=== PATIENT | male | born 2000 | race Hispanic/Latino ===

== ENCOUNTER 2020-09-15 07:35 | Inpatient (IN) | payer OTHER ==
[~2020-09-15] VITALS: Ht 175.3 cm; Wt 87.5 kg
--- OUTSIDE RECORDS SUMMARY | 2020-09-15 09:50 | XMS ---
PreManage Notification: CHALO BARROS Security Dietary Aid Events No recent Security Events currently on file CRITERIA MET - [facility] - 2 Visits in 30 Days CARE PROVIDERS There are no care providers on record at this time. Darin has no Care Guidelines for this patient. Dominga VISIT COUNT (12 MO.) [address] Anthony Joey TOTAL 2 NOTE: Visits indicate total known visits. ED/UCC VISIT TRACKING (12 MO.) [facility] COMPLAINT: - ABD PAIN 09/14/2020 23:43 [facility] [place] TYPE: Emergency DIAGNOSES: - Epididymitis - TESTICLE PAIN INPATIENT VISIT TRACKING (12 MO.) No inpatient visits to display in this time frame [email or web address]
--- NOTE | 2020-09-15 10:05 | NUR ---
Called ED and got report on pt from Amalia ALMARAZ. Pt has minimal ariadna hx, and is being admitted for appendicitis. Anticipating appy later today. Pt being moved to room 124. Pain is currently controlled.
--- NOTE | 2020-09-15 11:06 | NUR ---
ASSUMING CARE OF PATIENT. PATIENT APPEARS TO BE RESTING BACK IN BED WITH EYES CLOSED. MOTHER IS AT BEDSIDE. NO NEEDS AT THIS TIME.
--- NOTE | 2020-09-15 11:59 | NUR ---
PATIENT RESTING BACK IN BED, IV ANTIBIOTICS DONE INFUSING. IV FLUIDS FLOWING WELL. PATIENT REPORTS PAIN 2/10 ON PAIN SCALE AND VERBALIZES "MUCH BETTER". VSS. CALL LIGHT WITHIN REACH. NO OTHER NEEDS AT THIS TIME. MOTHER AT BEDSIDE. BALAJI AMARAL TO ROOM.
--- NOTE | 2020-09-15 13:30 | NUR ---
09/15/20 1330 Sheets,Basilia 1320 PT ARRIVED TO PACU ON 6L VIA MASK, VSS. PT MOVES HEAD BUT DOES NOT RESPOND TO QUESTIONS. RESP EVEN AND UNLABROED. 1327 O2 REMOVED AND PT OPENED HIS EYES, PT REORIENTED TO PACU AND DENIES PAIN. PT EASILY FALLS BACK TO SLEEP.
--- NOTE | 2020-09-15 14:00 | NUR ---
Pt arrived to the floor from PACU with Basilia ALMARAZ. Report was that pts procedure went well and his pain is only just becoming an issue. Pt is awake but groggy and oriented x4, reports no nausea with 6/10 pain. Initial VSS. Lap sites x3 appear intact, no active bleeding. Pt assessment complete, pt is remarkably healthy, focus of assessment is his incision sites. Pt in bed, side rails up, table and call light within reach.
--- NOTE | 2020-09-15 14:30 | NUR ---
Pt reports 8/10 increasing pain. PRN pain med given per orders. Pt reports no nausea at this time. Dinner ordered. Table and call light within reach, mother at bedside.
--- NOTE | 2020-09-15 15:24 | NUR ---
PT VOIDED YELLOW IN COLOR URINE INTO A URINAL, SOME ICE WATER GIVEN TO PT ALSO AT THIS TIME.
--- NOTE | 2020-09-15 16:10 | NUR ---
In room for vitals and rounding. Pt reports minimal pain and no nausea at this time. Pt has been able to tolerate sips of water and a jello without difficulty at this time. Pt ABX hung as ordered. Pt in bed, table and call light within reach. Pt also confirmed that we could call his girlfriend Mary to give her an update on how he's doing. Mary was called and given a general update. She asked about DC time and was told we do not currently know when DC will be.
--- NOTE | 2020-09-15 18:00 | NUR ---
In room for rounding. Pt had finished his meal for dinner and was still hungry, so he ordered more food. Pt reports mild pain but refuses pain meds, says he wantsto "wait a while". Pt in bed, table and call light within reach, mother at bedside.
--- NOTE | 2020-09-15 18:23 | NUR ---
MOTHER OF PATIENT CALLED FOR HELP, PATIENTS CALLBELL WAS NOT WORKING. PATIENT WANTED ASSTISTANCE WALKING TO BR. TOLERATED WELL. BACK TO BED, CHANGED GOWN. SUNG KU ENSURE CALL HAIDER IS NOW WORKING.
--- NOTE | 2020-09-15 19:43 | NUR ---
Shift report recieved by RN. [address] with gauze on abdominal reinforced by day shift. Pt states feeling dizzy when looking at sites. Mother is in the room and will be staying. No further needs or concerns at this time. Call light within reach.
--- NOTE | 2020-09-15 20:30 | NUR ---
pt called, needing to void, c/o lightheadedness and surgical site bleeding, informed main rn, had pt remain on edge of bed, void with urinal, took vitals, normal reading, rn to be in rm for pm assessment and meds soon
--- NOTE | 2020-09-15 21:30 | NUR ---
Pt resting in bed, assessment completed. Scheduled meds given. Pt refused pain medications, states that he is not having pain. Lap sites x3 intact with steri strips and gauze. Pt reports dizziness at times but VS remain stable. Education given on safety and use of call light. Pt verbalize understanding. No unlabored breathing. No further concerns or needs.
--- NOTE | 2020-09-15 22:15 | NUR ---
PT CALLED, GOT UP TO THE BR, SBA/1PA, PT HAS STOMACH PAIN FROM SURGERY SITE, REPORTS SOME DIZZYNESS AT TIMES, TOLERATES WALKING WITH SLOW PACE AND HAS TREMBLING, PT IS ABLE TO STAND AT TOILET, USES URINAL, PT AT EDGE OF BED, REQUESTING TO SIT THERE FOR A MINUTE, PTs GIRLFRIEND IN RM, PT AGREES TO CALL ONCE READY TO LAY BK IN BED, LEFT PT TO SIT AND HELP ANOTHER PT
--- NOTE | 2020-09-15 22:32 | NUR ---
CALL LIGHT ON. pt REQUESTED ASSISTANCE TO LAY DOWN. SCDS ON. ASSISTED TO REPOSITION. NO FURTHER REQUESTS AT THIS TIME. CALL LIGHT WITHIN REACH. VISITOR AT BEDSIDE.
--- NOTE | 2020-09-16 01:19 | NUR ---
Pt lying in bed, reports tolerable pain 3/10 on abdomen. VS stable, HVAC RESIDENTIAL SERVICE TECHNICIAN assisted pt to the restroom and back to bed, SBA. Girlfriend in room. call light within reach.
--- NOTE | 2020-09-16 03:41 | NUR ---
IV PUMP BEEPING. pt REQUESTED TO GET UP TO VOID, VERY SHAKY. pt STATED "THE PAIN GETS BAD WHEN I AM UP AND WALKING, I ALSO GET REALLY SHAKY. I THINK MY BLOOD SUGAR IS LOW." CHECKED BLOOD SUGAR 114. PROVIDED A SNACK. AFTER RESTING IN BED FOR A FEW MINUTES THE pt STOPPED SHAKING. IVF, AND ANTIBIOTIC HUNG. PRN PAIN MED GIVEN FOR 8/10 PAIN. PRIMARY RN IN ROOM.
--- NOTE | 2020-09-16 03:43 | NUR ---
ASSESSMENT COMPLETE, PT RECENTLY MEDICATED BY SUNG CHARLTON FOR INCREASED 8/10 ABD PAIN. SCHEDULED ABX ALSO GIVEN. LAP SITES X3 REMAIN UNCHANGED, BT ACTIVE. NO NAUSEA REPORTED, SNACK AT BEDSIDE. IV FLUIDS INFUSING, SITE WNL. GIRLFRIEND REMAINS IN ROOM. PT DENIES ADDITIONAL NEEDS, CALL LIGHT IN REACH.
--- NOTE | 2020-09-16 04:00 | NUR ---
took pillow to for pt's girlfriend, reconnected scds, provide pt more apple suace, joce further request at this time
--- NOTE | 2020-09-16 06:22 | NUR ---
VSS, PT DENIES PAIN. SCHEDULED TYLENOL GIVEN (SEE EMAR). I&O'S COMPLETE, NO NEW CONCERNS. CALL LIGHT IN REACH.
--- NOTE | 2020-09-16 07:15 | NUR ---
To room for shift report from Chantale ALMARAZ. Pt report included: was able to void sufficiently throughout the paper winder, but has not had a BM yet. Pt able to walk with SBA to bathroom as needed. Uses call light appropriately. Lep sites have not been over-saturated or concerning. Pt having some issues wild mild dizziness periodically. Nightshift RNs said his BPs have been within range. Will continue to monitor and assess. Pt lying in bed, eyes closed, breathing even and unlabored.
--- NOTE | 2020-09-16 08:30 | PATH ---
[facility] [address] [place], [place] [address] Signed ORDERING PHYSICIAN: Daniel Berg MD PATIENT NAME: CHALO BARROS GENDER: M : 2000 Prior History: No cases found. SPECIMEN(S): MOLECULAR PATHOLOGY RESULTS: SARS-CoV-2 Not Detected ADDITIONAL NOTES.: The Jessie Fusion SARS-CoV-2 Assay is a multiplex real-time PCR (RT-PCR) in vitro diagnostic test intended for the qualitative detection of RNA from SARS-CoV-2 from individuals who meet COVID-19 clinical and/or epidemiological criteria. In general, SARS-CoV-2 RNA can be detected during the acute phase of infection. Positive results indicate the presence of SARS-CoV-2 RNA. Clinical correlation with patient history and other diagnostic information is necessary to determine patient infection status. Positive results do not rule out bacterial infection or co-infection with other viruses. Negative results do not preclude SARS-CoV-2 infection and should not be used as the sole basis for patient management decisions. Negative results must be combined with other clinical observations, patient history, and epidemiological information. The Jessie Fusion SARS-CoV-2 Assay is not yet approved or cleared by the [place] FDA. When there are no FDA-approved or cleared tests available, and other criteria are met, FDA can make tests available under an emergency access mechanism called an Emergency Use Authorization (EUA). The EUA for this test is supported by the [place] Manager of Health and Human Service's (HHS's) declaration that circumstances exist to justify the emergency use of in vitro diagnostics for the detection and/or diagnosis of the virus that causes COVID-19. This EUA will remain in effect for the duration of the COVID-19 declaration justifying emergency of IVDs, unless it is terminated or revoked by FDA, after which the test may no longer be used. The Jessie Fusion SARS-CoV-2 Assay is for use only under EUA PATIENT NAME: CHALO BARROS JUAN PATHOLOGY DATE OF : [birth year] REPORT #: [id number] PHYSICIAN: ABEL PATHOLOGY PCP: NO PRIMARY CARE PHYSICIAN REPORT IS CONFIDENTIAL AND NOT TO BE RELEASED WITHOUT AUTHORIZATION [facility] [address] [place] [address] [place], [place] [address] Signed in [place] laboratories certified under the Clinical Laboratory Improvement Amendments of 1988 (CLIA) to perform high complexity tests. [facility] is certified under CLIA to perform high complexity clinical laboratory testing. PERFORMING LABORATORY.: Molecular testing was performed by [facility] [address] [place], [place] [address], [place] [address] (Nanny/Household Manager: Ketan Degroot D.O.; CLIA#: [id number]) Diagnostician: System Interface Pathologist Electronically Signed 09/16/2020 Copies: ~ PATIENT NAME: CHALO BARROS JUAN PATHOLOGY DATE OF : [birth year] REPORT #: [id number] PHYSICIAN: ABEL BERRY PCP: NO PRIMARY CARE PHYSICIAN REPORT IS CONFIDENTIAL AND NOT TO BE RELEASED WITHOUT AUTHORIZATION
--- NOTE | 2020-09-16 08:32 | NUR ---
In room for morning assessment and med pass. Pt able to receive meds without difficulty. Pt getting LR at 85mls/hr as ordered. Pt assessment complete, nothing concerning noted, VSS, see charting. Pt up to bathroom with SBA, moving independently with a steady gait. Pt performed own oral care. Pt ordered breakfast, and has had no nausea throughout the night. Pt reports 5/10 tolerable pain and refuses pain meds. Pt denies dizziness upon standing and ambulation. Pt back to bed, table and call light within reach, girlfriend in the room.
--- NOTE | 2020-09-16 10:05 | NUR ---
In room for med pass. Pt getting back into bed with WORKING FOREMAN at A. Pt reports no nausea and pain of 6/10 when resting after ambulation. Pt was shaking slightly while walking and when asked, he reports that he shakes when he gets up "cause the pain is sharp". Pt refuses pain meds right now, but agrees to have PRN Toradol within the next availible time. Pt denies dizziness. Pt back to bed, table and call light within reach. ABX infusing as ordered.
--- NOTE | 2020-09-16 11:28 | NUR ---
In room for rounding. Pt reports tolerable 5/10 pain an no nausea or dizzines at this time. Pt lying in bed, side rails up, table and call light within reach.
--- NOTE | 2020-09-16 12:29 | NUR ---
Pt disconnected from fluids, and was able to ambulate 3 full laps around both nurses stations. Pt back to bed, SCDs appliead and on, side rails up, table and call light within reach.
[2020-09-16] MEDS ORDERED: ACETAMINOPHEN500 MG PO (13:25)
[2020-09-16] MEDS ORDERED: OXYCODON-ACETA1 EAC2 PO (13:25)
[2020-09-16] MEDS ORDERED: MOTRIN IB200 M1 PO (13:26)
--- NOTE | 2020-09-16 14:03 | NUR ---
PATIENT SITTING UP IN BED. GIRLFRIEND IN ROOM. VITAL SIGNS AND I&O DONE. CALL LIGHT WITHIN REACH. NO OTHER NEEDS AT THIS TIME
--- NOTE | 2020-09-16 14:30 | NUR ---
DC TO HOME ACCOMPANIED BY MOTHER AT THIS TIME.
--- NOTE | 2020-09-18 15:17 | OR ---
[facility] [address] [place], [place] [address] Signed DATE OF OPERATION: 09/15/2020 SURGEON: Hany Perdomo MD PREOPERATIVE DIAGNOSIS: Acute appendicitis. POSTOPERATIVE DIAGNOSIS: Acute suppurative appendicitis. PROCEDURE: Laparoscopic appendectomy. ANESTHESIA: General endotracheal; Geovani Leon CRNA. PROJECT MANAGER FINANCE: Nurse (Jerry Ann RN). INDICATIONS: This 19-year-old man presents to the emergency room today, was evaluated by Dr. Turner with severe right lower abdominal pain and white count of 21,000. He is found on clinical examination to have tenderness. A CT scan was performed, confirming acute appendicitis. Notably, the patient was seen yesterday in the [place] ER, where he was diagnosed with epididymitis, although he did not have a scrotal pain or tenderness. His white count was normal at that time as well. He has been fluid resuscitated given intravenous antibiotics, and is now to undergo appendectomy, preferred by laparoscopic approach. The risks of bleeding, infection, need for open procedure, and other unforeseen complications were reviewed in detail. He understands and wished to proceed. FINDINGS: Acute suppurative appendicitis was noted. Appendix was excised without problem. The gallbladder may have had mild chronic inflammation, but no sign of distention or anything to suggest acute cholecystitis. Liver was normal. There were no other findings of concern. DESCRIPTION OF PROCEDURE: The patient was brought to the operating room, given a general endotracheal anesthetic. Electronically Signed By: HANY PERDOMO MD 09/18/20 1517 PATIENT NAME: CHALO BARROS OPERATIVE REPORT DATE OF : [birth year] REPORT #: [id number] PHYSICIAN: HANY PERDOMO MD PCP: NO PRIMARY CARE PHYSICIAN REPORT IS CONFIDENTIAL AND NOT TO BE RELEASED WITHOUT AUTHORIZATION [facility] [address] [place], [place] [address] Signed Preoperative antibiotic, cefoxitin had been given. Sequential compression device stockings used. Heparin subcutaneously administered. The abdomen was prepared with a chlorhexidine solution and draped sterilely. An infraumbilical incision was made and using an open Luis Enrique cannula technique, pneumoperitoneum was achieved to a level of 14 mmHg of carbon dioxide gas. Notably, there was a circumareolar incision in the infraumbilical fold as well. Intraabdominal inspection showed no sign of ascites or carcinomatosis. An epigastric incision was made anticipating placement of a trocar there. However, it was placed too far to the left to be acceptable, therefore another vertical incision was made more to the right of the linea alba allowing for passage of a 12 mm epigastric port without impediment by the round ligament. Camera was replaced to that site. Single hand manipulation of the right lower abdomen revealed the underlying appendix, which was quite markedly inflamed and edematous peel. The right lower quadrant 5 mm port was placed with two hand manipulation, the appendix elevated and a window created between the appendix and the mesoappendix with electrocautery. Endo-DENG stapling device was used to transect the appendix flushed with the cecum. Elevation of the appendix allowed for good visualization of the mesoappendix. A single load of an Endo-DENG staple load across the mesoappendix to allow for complete transection and good hemostasis. The appendix was placed in an endobag and extracted through the infraumbilical port site without problem and opened on the back table. Irrigation was undertaken in the right lower quadrant. There was no sign of bleeding or other abnormality. Staple lines were hemostatic. The trocars removed under direct visualization without problem. The infraumbilical fascial incision reapproximated with interrupted 0-Vicryl suture. The skin was closed with interrupted 3-0 Vicryl. Steri-Strips were applied. The patient was ultimately extubated and transferred to the recovery room in good condition, having suffered no complication. ESTIMATED BLOOD LOSS: Minimal. COMPLICATIONS: None. MD MAGALYS Bee/MODL /[id number] Electronically Signed By: HANY PERDOMO MD 09/18/20 1517 PATIENT NAME: CHALO BARROS OPERATIVE REPORT DATE OF : [birth year] REPORT #: [id number] PHYSICIAN: HANY PERDOMO MD PCP: NO PRIMARY CARE PHYSICIAN REPORT IS CONFIDENTIAL AND NOT TO BE RELEASED WITHOUT AUTHORIZATION [facility] [address] [place] [address] [place] [address] Signed cc: Shekhar Turner MD Copies: SHEKHAR TURNER MD ~ Electronically Signed By: HANY PERDOMO MD 09/18/20 1517 PATIENT NAME: CHALO BARROS OPERATIVE REPORT DATE OF : [birth year] REPORT #: [id number] PHYSICIAN: HANY PERDOMO MD PCP: NO PRIMARY CARE PHYSICIAN REPORT IS CONFIDENTIAL AND NOT TO BE RELEASED WITHOUT AUTHORIZATION
--- NOTE | 2020-09-18 15:17 | HP ---
[facility] [address] [place], [place] [address] Signed ADMISSION DATE: 09/15/2020 REASON FOR ADMISSION: Acute appendicitis. HISTORY OF PRESENT ILLNESS: This 19-year-old man lives in [place], [place] and complains of severe right lower abdominal pain. He was evaluated by Dr. Turner in the emergency room, which included lab studies and a CT scan which confirmed acute appendicitis. Notably, the patient was seen recently in the emergency room in [facility] with left clear abdominal pain and was diagnosed with epididymitis. Notably, the patient had no complaint of testicular pain. 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 His past medical history is rather unremarkable otherwise. He does have prior exposure to COVID more than two weeks ago, specifically his mother. Notably, his mother accompanies him today and is symptom-free. She was said to have COVID disease greater than three weeks ago. 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 The patient believes that he probably had COVID more than two weeks ago as he had a cough and loss of his smell sensation, but has no current symptoms or complaints. PAST SURGICAL HISTORY: As described, unilateral orchiectomy. SOCIAL HISTORY: The patient has two children. Lives with his girlfriend in an apartment in [place], [place]. REVIEW OF SYSTEMS: He denies any shortness of breath or chest pain. He has significant right lower abdominal pain currently. Denies any dysuria, hematuria, testicular pain or scrotal pain. PHYSICAL EXAMINATION: GENERAL: Pleasant man who looks to be in significant pain. He has been given pain medicine already. His mother attends to him. Electronically Signed By: HANY PERDOMO MD 09/18/20 1517 PATIENT NAME: CHALO BARROS HISTORY AND PHYSICAL DATE OF : [birth year] REPORT #: [id number] PHYSICIAN: HANY PERDOMO MD PCP: NO PRIMARY CARE PHYSICIAN REPORT IS CONFIDENTIAL AND NOT TO BE RELEASED WITHOUT AUTHORIZATION [facility] [address] [place], [place] [address] Signed VITAL SIGNS: His temperature is 98.7, pulse is 91, blood pressure 112/63, O2 saturation on room air is 99%. NECK: Shows no thyromegaly or cervical adenopathy. Trachea is midline. CHEST: Clear. HEART: Regular. ABDOMEN: Nondistended. Rovsing sign is negative. He has marked tenderness in the right lower quadrant. EXTREMITIES: Show no clubbing, cyanosis, or edema. LABORATORY STUDIES: Show a white count of 21.4, platelets 264,000, hematocrit 41.9. Urinalysis from hospitalization in [place] is normal. Electrolytes are normal. CT scan was reviewed personally and report also reviewed confirming appendicitis without other abnormalities of the abdomen or pelvis. Findings: Confirmed history of right orchiectomy. ASSESSMENT: The patient has acute appendicitis. I discussed with him the physiology of the problem and the recommendation of treatment to include appendectomy. We will administer cefazolin 2 g IV, Pepcid 20 mg IV and continue with IV fluid administration anticipating operation today. Risks of bleeding, infection, need for open procedure instead of laparoscopic one, need for other indicated procedures and so forth all reviewed in detail. He understands and wished to proceed. MD MAGALYS Bee/MODL /[id number] cc: Dr. Turner Copies: ~ Electronically Signed By: HANY PERDOMO MD 09/18/20 1517 PATIENT NAME: CHALO BARROS HISTORY AND PHYSICAL DATE OF : [birth year] REPORT #: [id number] PHYSICIAN: HANY PERDOMO MD PCP: NO PRIMARY CARE PHYSICIAN REPORT IS CONFIDENTIAL AND NOT TO BE RELEASED WITHOUT AUTHORIZATION
== END 2020-09-16 14:30 | disposition home or self-care (01) | DRG 343 ==
LOC: ED 07:35 → MS 09:51
PROVIDERS: ADMIT Surgery; ATTEND Surgery
PROC: 0DTJ4ZZ Resection of Appendix, Percutaneous Endoscopic Approach (ICD-10-PCS; principal; 2020-09-15 12:00)
DX: K35.80 Unspecified acute appendicitis (principal); Z20.828 Contact with and (suspected) exposure to other viral communicable diseases
CPT/HCPCS: 00790; 74177; 85025; 99284-25; C9803; J0131; J0330; J0694; J1100; J1885; J2001; J2270; J2405; J2704; J3010; J7030; J7121; Q9967